=== PATIENT | male | born 1960 | race Caucasian/White ===

== ENCOUNTER 2016-09-08 10:32 | Inpatient (IN) | payer OTHER ==
[~2016-09-08] VITALS: Ht 172.7 cm; Wt 86.2 kg
[~2016-09-08 10:32] MED LIST: CENTRUM COMPLE1 EACH PO; COUMADIN5 MG PO; FISH OIL 1,0001 EAC3 PO; LISINOPRIL5 MG PO; LOPRESSOR 25 MG25 MG PO; LORTAB 10-3251 EACH PO; SPIRONOLACTONE25 MG PO
[2016-09-08 11:48] LABS: HEMOGLOBIN 15.8 gm/dl (14.0-17.5); RED BLOOD COUNT 4.6 M/UL (4.20-5.50); WHITE BLOOD COUNT 10.8 K/UL (4.5-11.0)
[2016-09-08 12:08] LABS: BUN/CREATININE RATIO 12 (0-10)
[2016-09-09 03:06] LABS: HEMOGLOBIN 13.2 gm/dl (14.0-17.5); RED BLOOD COUNT 3.89 M/UL (4.20-5.50); WHITE BLOOD COUNT 7.1 K/UL (4.5-11.0)
[2016-09-09 03:14] LABS: BUN/CREATININE RATIO 19 (0-10)
[2016-09-09] MEDS ORDERED: PRAVACHOL40 MG PO (08:42)
[2016-09-12 04:47] LABS: RED BLOOD COUNT 3.57 M/UL (4.20-5.50)
[2016-09-12 05:04] LABS: BUN/CREATININE RATIO 20 (0-10)
[2016-09-13 01:24] LABS: HEMOGLOBIN 10.1 gm/dl (14.0-17.5); WHITE BLOOD COUNT 7.1 K/UL (4.5-11.0)
[2016-09-13 01:33] LABS: BUN/CREATININE RATIO 15 (0-10)
[2016-09-14 06:05] LABS: HEMOGLOBIN 10.1 gm/dl (14.0-17.5); WHITE BLOOD COUNT 6.1 K/UL (4.5-11.0)
[2016-09-14 06:19] LABS: BUN/CREATININE RATIO 22 (0-10)
[2016-09-17 06:35] LABS: BUN/CREATININE RATIO 20 (0-10)
[2016-09-17] MEDS ORDERED: PERCOCET 10-321 EACH PO (17:24)
== END 2016-09-17 18:00 | disposition home or self-care (01) | DRG 493 ==
LOC: ER1 10:32 → M/S 13:00 → ZEROF 16:30 → M/S 16:30
PROVIDERS: Emergency Medicine; Internal Medicine; ADMIT Internal Medicine
PROC: 2W39X1Z Immobilization of Left Upper Extremity using Splint (ICD-10-PCS; principal; 2016-09-08)
PROC: 30233K1 Transfusion of Nonautologous Frozen Plasma into Peripheral Vein, Percutaneous Approach (ICD-10-PCS; principal; 2016-09-08)
PROC: 0PSG04Z Reposition Left Humeral Shaft with Internal Fixation Device, Open Approach (ICD-10-PCS; 2016-09-11)
DX: S42.352A Displaced comminuted fracture of shaft of humerus, left arm, initial encounter for closed fracture (principal); E87.2 Acidosis; Z95.2 Presence of prosthetic heart valve; Z72.89 Other problems related to lifestyle; S44.22XA Injury of radial nerve at upper arm level, left arm, initial encounter; W01.198A Fall on same level from slipping, tripping and stumbling with subsequent striking against other object, initial encounter; Y93.89 Activity, other specified; Y92.000 Kitchen of unspecified non-institutional (private) residence as the place of occurrence of the external cause; F17.220 Nicotine dependence, chewing tobacco, uncomplicated; I10 Essential (primary) hypertension; G89.21 Chronic pain due to trauma; M54.5 Low back pain; M10.9 Gout, unspecified; M25.561 Pain in right knee; Z82.49 Family history of ischemic heart disease and other diseases of the circulatory system; Z80.1 Family history of malignant neoplasm of trachea, bronchus and lung; Z28.21 Immunization not carried out because of patient refusal; Z79.891 Long term (current) use of opiate analgesic; Z79.01 Long term (current) use of anticoagulants; Z79.899 Other long term (current) drug therapy
CPT/HCPCS: 36415; 36430; 70450; 71010; 72125; 73060; 76000; 80048; 80053; 83690; 85025; 85610; 85730; 86850; 86900; 86901; 86927; 96374; 96376; 97535; 99285; C1713; G0480; J0690; J1200; J1644; J2060; J2250; J2270; J2405; J2795; J3010; J3360; J3411; J3430; J3475; J3486; J7030; J7050; J7120; P9017

== ENCOUNTER → 2020-07-25 | Outpatient (CLI) | payer MEDICARE, OTHER ==
[~2020-07-25] MED LIST changes: +PERCOCET 10-321 EACH PO; +PRAVACHOL40 MG PO
== END ==
LOC: HEART 5 10:14
DX: R06.02 Shortness of breath (principal); R94.2 Abnormal results of pulmonary function studies
CPT/HCPCS: 94010; 94729

== ENCOUNTER → 2020-08-19 | Outpatient (CLI) | payer MEDICARE, OTHER | LOC: KOH-I 10:00 | DX: J60 Coalworker's pneumoconiosis (principal); R59.0 Localized enlarged lymph nodes; R91.1 Solitary pulmonary nodule; K80.20 Calculus of gallbladder without cholecystitis without obstruction | CPT/HCPCS: 71250 ==

== ENCOUNTER → 2020-11-15 | Outpatient (CLI) | payer MEDICARE, OTHER | LOC: HEART 5 14:17 | DX: I71.2 Thoracic aortic aneurysm, without rupture (principal); I35.1 Nonrheumatic aortic (valve) insufficiency; R06.02 Shortness of breath | CPT/HCPCS: 93306 ==

== ENCOUNTER → 2021-02-23 | Outpatient (CLI) | payer MEDICARE | LOC: KOH-I 10:51 | DX: J60 Coalworker's pneumoconiosis (principal); R59.0 Localized enlarged lymph nodes; R91.8 Other nonspecific abnormal finding of lung field | CPT/HCPCS: 71250 ==

== ENCOUNTER → 2021-12-20 | Outpatient (CLI) | payer MEDICARE ==
[2021-12-20 12:39] LABS: BUN/CREATININE RATIO 13 (0-10)
== END ==
LOC: LAB 11:26
PROVIDERS: Emergency Medicine
DX: Z12.5 Encounter for screening for malignant neoplasm of prostate (principal); Z12.11 Encounter for screening for malignant neoplasm of colon; I10 Essential (primary) hypertension; I35.0 Nonrheumatic aortic (valve) stenosis; E79.0 Hyperuricemia without signs of inflammatory arthritis and tophaceous disease; E78.2 Mixed hyperlipidemia
CPT/HCPCS: 36415; 80053; G0103

== ENCOUNTER → 2022-01-08 | Outpatient (CLI) | payer MEDICARE ==
[2022-01-08 12:34] LABS: HEMOGLOBIN 14.2 gm/dl (14.0-17.5); RED BLOOD COUNT 3.91 M/UL (4.20-5.50); WHITE BLOOD COUNT 4.3 K/UL (4.5-11.0)
== END ==
LOC: LAB 10:28
PROVIDERS: Emergency Medicine
DX: D69.6 Thrombocytopenia, unspecified (principal)
CPT/HCPCS: 36415; 85025

== ENCOUNTER → 2022-02-20 | Outpatient (CLI) | payer MEDICARE | LOC: KOH-I 09:30 | DX: D69.6 Thrombocytopenia, unspecified (principal); K76.0 Fatty (change of) liver, not elsewhere classified; K82.8 Other specified diseases of gallbladder; K80.80 Other cholelithiasis without obstruction | CPT/HCPCS: 76705 ==